=== PATIENT | female | born 1995 | race Caucasian/White ===

== ENCOUNTER 2023-06-23 11:55 | Emergency (ER) | payer BC, SELFPAY ==
[2023-06-23] VITALS (7 sets, daily range): BP systolic 107–119; BP diastolic 73–92; PULSE 95–138
[2023-06-23 12:45] LABS: % Basophils 0.4 % (0-2); % Eosinophils 0.8 % (0-6); % Immature Granulocytes 0.1 % (0-0.5); % Lymphocytes 27.5 % (20.5-51.1); % Monocytes 3.6 % (1.7-9.3); % Neutrophils 67.6 % (42.2-75.2); Absolute Eosinophils 0.1 10^3/uL (0-0.7); Absolute Lymphocytes 2.5 10^3/uL (1.2-3.4); Absolute Monocytes 0.3 10^3/uL (0.1-0.6); Absolute Neutrophils 6.2 10^3/uL (1.4-6.5); Hematocrit 42.1 % (37.0-47.0); Hemoglobin 14.8 g/dL (12.0-16.0); Mean Corp Hgb Conc. 35.2 g/dL (33.0-37.0); Mean Corpuscular Hgb 29.8 pg (27.0-31.0); Mean Corpuscular Volume 84.7 fL (81.0-99.0); Mean Platelet Volume 9.3 fL (7.4-10.4); Nucleated Red Blood Cells % 0 %; Platelet Count 420 10^3/uL (130-400); Red Blood Cell Count 4.97 10^6/uL (4.20-5.40); Red Cell Dist. Width 11.4 % (11.5-14.5); White Blood Cell Count 9.2 10^3/uL (4.8-10.8)
[2023-06-23 12:57] LABS: HCG, Serum Qualitative Screen Negative
[2023-06-23 13:01] LABS: ALT (SGPT) 30 U/L (0-35); AST (SGOT) 30 U/L (14-36); Albumin 4.3 g/dl (3.5-5.0); Alkaline Phosphatase 98 U/L (38-126); Blood Urea Nitrogen 13 mg/dl (7-17); Calcium 9.5 mg/dl (8.4-10.2); Carbon Dioxide 24 mmol/L (22-30); Chloride 104 mmol/L (98-107); Glucose 126 mg/dl (70-99); Potassium 4.1 mmol/L (3.5-5.1); Sodium 136 mmol/L (135-145); Total Bilirubin 0.8 mg/dl (0.2-1.3); Total Protein 7.1 g/dl (6.3-8.2); eGFR > 60.00
[2023-06-23 13:31] LABS: TSH 0.31 uIU/ml (0.47-4.68)
[2023-06-23] MEDS: NSS 1000 IV (13:33)
--- NOTE | 2023-06-23 13:53 | ED.GENMED ---
History of Present Illness
General
Chief Complaint: Heart Rate Problem
Source: patient and family
Time Seen by Provider: 06/23/23 12:36
Travel History
Have you had any contact with someone who has COVID-19?: No
Do you have any symptoms of coronavirus? Fever > 100 degrees, chills, cough, shortness of breath, sore throat, loss of taste or smell, muscle aches, or headache?: No
History of Present Illness
History of Present Illness:
27-year-old female with no significant past medical history presenting emergency department [facility] after she went there today after she woke up from sleep and was sitting in her kitchen when she started to feel
palpitations and lightheaded combined with some mild shortness of breath which is similar to symptoms she has had for a long duration of time but today seemed worse. Patient had an EKG done at the urgent care and she was told that she was in atrial
flutter and that she should go to the emergency department for further evaluation. Upon arrival to the emergency department patient still notes some palpitations but otherwise is not having any further chest tightness or shortness of breath. She
notes that on her Apple Watch when the symptoms first started her heart rate was around 190 bpm. Patient notes that she had seen her primary care physician for this a while back and had an EKG done as an outpatient but that no abnormalities were
found and no other further workup has been done. Patient denies any recent fevers or illnesses, abdominal pain, nausea, vomiting, lower extremity edema, cough, pleurisy. She does take a daily oral contraceptive. Social history was significant for
very occasional alcohol but denies any recently. Family history was significant for father having a history of a left bundle branch block.
Past History
Past History
ED Past Medical History: None
ED Past Surgical History: None
Social History
Tobacco: Non-smoker
Alcohol: Occasional
Drug: None
Personal: Single
Living: with family
Employment: Employed
Review of Systems
Review of Systems
All Other Systems: ROS reviewed and negative except as documented in HPI and ROS
Phy Exam
Physical Exam
Physical Exam:
GENERAL: Alert , in no apparent distress
EYE: conjunctiva clear
NECK: Supple
ENT: o/p clr, mmm.
CARDIAC: Tachycardic rate and rhythm with heart rate going between 105 to 120 bpm
LUNGS: Clear breath sounds bilaterally, no acute respiratory distress, no wheezes/rales/rhonchi
NEUROLOGICAL: Alert and oriented
SKIN: Warm and dry, skin intact.
MUSCULOSKELETAL: well perfused.
PSYCH: Normal and appropriate interaction.
Scores
Heart Failure Risk
Heart Failure Risk Score: Not Applicable
Heart Score for Chest Pain Patients
STEMI patient?: Not applicable
Withdrawal Assessment of Alcohol
Withdrawal Assessment Completed?: Not applicable
Course
Orders/Labs/Results
Orders:
Orders
06/23/23 11:56
EKG [Electrocardiogram (*1)] Urgent
Reason for Study: Tachycardia
EKG- Treatment ONCE
06/23/23 12:18
Test Result ONCE
06/23/23 12:33
CMP [Comprehensive Metabolic Panel] Urgent
Complete Blood Count/With Diff Urgent
HCG, Serum Qualitative Screen Urgent
Magnesium Urgent
Comment: ADD ON
TSH Urgent
06/23/23 12:50
Add On- LAB Urgent
Tests Added?: magnesium
06/23/23 13:00
D-Dimer Urgent
06/23/23 13:20
Orthostatic VS- Treatment ONCE
0.9% Sodium Chloride 1000 ml [Nss] 1,000 ml IV BOLUS
06/23/23 14:08
CR Chest - 2 Views Urgent
Comment:
Reason For Exam: palpitations, SOB
Abnormal Lab Results
06/23/23
12:33
RDW 11.4 L %
(11.5-14.5)
Plt Count 420 H 10^3/uL
(130-400)
Glucose 126 H mg/dl
(70-99)
TSH 0.31 L uIU/ml
(0.47-4.68)
06/23/23 12:33
06/23/23 12:33
Vital Signs
Initial and Last Documented VS:
Initial Vital Signs
Temp Pulse Resp BP Pulse Ox
99.3 F 117 18 119/84 100
06/23/23 11:59 06/23/23 11:59 06/23/23 11:59 06/23/23 11:59 06/23/23 11:59
Last Documented Vital Signs
Temp Pulse Resp BP Pulse Ox
99.3 F 76 15 117/79 100
06/23/23 11:59 06/23/23 14:45 06/23/23 14:45 06/23/23 14:00 06/23/23 13:24
MDM/Problems Addressed
Differential Diagnosis Includes:
Cardiac dysrhythmia, electrolyte disturbance, valvular dysfunction, PE, POTS, orthostasis, caffeine intake
MDM/Problems Addressed:
27-year-old female present emergency department for evaluation from local urgent care with concern for cardiac dysrhythmia. Patient notes that her symptoms have been ongoing for at least a few years, has never had a cardiac workup other than an
EKG. I reviewed patient's EKG from the urgent care and the EKG is a sinus tachycardia and there is no evidence for atrial flutter. Patient's EKG done here in this emergency department shows the same sinus tachycardia. Overall it is certainly
possible patient is having a paroxysmal cardiac dysrhythmia however currently is not showing any signs of this. Patient does have risk factor for DVT/PE including oral contraceptive pills so will obtain a D-dimer. Will treat with 1 L normal
saline. Reassessment following. Ultimately I do feel patient will likely be discharged home but will likely need close cardiac follow-up.
*Radiology
Radiology exam reviewed: preliminary read by ED provider (Unremarkable chest x-ray)
*Pulse Oximetry
Patient hypoxic: no
*EKG
Interpreted by ED Provider?: Yes
Comparison EKG: no comparison EKG present
Heart Rate: 102
Rate: tachycardiac
Rhythm: sinus
[place]: normal axis
Interval: normal interval
Ischemia: no ischemia
*[facility] Staff Interpretation
Rate: tachycardiac
Rhythm: sinus
*Critical Care Note
Total Time (30-74mins, 75-104mins- exclusive of procedures): Not Applicable
Data Reviewed
Review of Other/Old Records Reveals: Other (EKG from urgent care shows mild sinus tachycardia)
Source: patient and records
Patient Management
Escalation/DeEscalation of care consider admission/obs:
Patient's lab findings are unremarkable. Chest x-ray was also unremarkable. Patient's heart rate significantly improved with IV fluids. Advised continued oral hydration at home. Information for cardiology was provided. Aware of return
precautions to the ER but otherwise stable for discharge home.
ED Attending Note
-
Portions of this chart may have been created with voice recognition software.� Occasional wrong word or��sound alike� substitutions may have occurred due to the inherent limitations of voice recognition software.
Discharge Plan
Departure
Patient Disposition: Home (Routine Discharge)
Date of Disposition: 06/23/23
Time of Disposition: 15:19
Patient with high blood pressure during this ER visit?: No
Discharge Problem:
Palpitations
Instructions: Palpitations (DC), Chest Pain CBC Follow Up
Prescriptions:
No Action
fluoxetine 40 mg Capsule
60 mg PO DAILY
lamotrigine 150 mg Tablet
150 mg PO DAILY
norethindrone ac-eth estradiol [June06/04 (21)] 1-20 mg-mcg Tablet
1 tab PO DAILY
dextroamphetamine-amphetamine [Adderall XR] 30 mg Capsule,Extended Release 24hr
30 mg PO DAILY
Referrals:
Becki Doss PA-C [Family Provider] -
Interventions
Interventions:
*Risk Screen - Suicide Last Done: 06/23/23 12:04
*General Assessment Last Done: 06/23/23 12:04
*Neglect/Abuse Screening Last Done: 06/23/23 12:05
*ED COVID-19 Vaccine History Last Done: 06/23/23 15:25
*Nursing Disposition Last Done: 06/23/23 15:25
ED- Cardiac Assessment Last Done: 06/23/23 12:47
ED- Pulmonary Assessment Last Done: 06/23/23 12:47
Discharge Date and Time
Discharge Date/Time: 06/23/23 15:26
[2023-06-23 14:05] LABS: D-Dimer < 0.27 ug/mlFEU (0.00-0.50)
== END 2023-06-23 15:26 | disposition home or self-care (01) ==
LOC: EMR 11:55
PROVIDERS: Emergency Medicine; Physician Assistant Medical; EMERGENCY PHYSICIAN Emergency Medicine; FAMILY PHYSICIAN Student in an Organized Health Care Education/Training Program
DX: R00.2 Palpitations (principal); R06.02 Shortness of breath
CPT/HCPCS: 99285; 96360; 71046; 80053; 83735; 84443; 84703; 85025; 85379; 93005